=== PATIENT | male | born 1960 | race Caucasian/White ===

== ENCOUNTER 2016-07-25 13:00 | Emergency (ER) | payer MEDICARE | END 2016-07-25 15:45 | disposition home or self-care (01) | LOC: ER 13:00 | DX: N45.1 Epididymitis (principal); N28.9 Disorder of kidney and ureter, unspecified; M54.2 Cervicalgia; M79.604 Pain in right leg; F41.9 Anxiety disorder, unspecified; I10 Essential (primary) hypertension; F17.210 Nicotine dependence, cigarettes, uncomplicated; Z79.899 Other long term (current) drug therapy; Z88.5 Allergy status to narcotic agent | CPT/HCPCS: 36415 ==